=== PATIENT | female | born 1985 | race Caucasian/White ===

== ENCOUNTER 2022-10-16 11:54 | Emergency (ER) | payer MEDICAID ==
[~2022-10-16] VITALS: Ht 167 cm; Wt 94.8 kg
[~2022-10-16 11:54] MED LIST: CEPH500C PO; CYCL10TA9 PO; DOXY100C2 PO; FAMO-106 GT; FERR-57 PO; FRS325T PO; HYDR1TAB PO; IBP600T1 PO; LANS15CA PO; METR500T PO; NAPR-243 PO; OXYC-12 PO; PREN1TAB39 PO; PRM25T PO
[2022-10-16 12:28] LABS: BASOPHILS # (AUTO) 0.1 10^3/uL (0.0-0.1); BASOPHILS % (AUTO) 1 % (0-10); EOSINOPHILS # (AUTO) 0.1 10^3/uL (0.0-0.3); EOSINOPHILS % (AUTO) 1 % (0-10); HEMATOCRIT 40 % (35-52); HEMOGLOBIN 13.3 g/dL (11.5-16.0); LYMPHOCYTES # (AUTO) 3.5 10^3/uL (1.0-4.0); LYMPHOCYTES % (AUTO) 26 % (12-44); MEAN CORPUSCULAR HEMOGLOBIN 29 pg (25-34); MEAN CORPUSCULAR HGB CONC 34 g/dL (32-36); MEAN CORPUSCULAR VOLUME 86 fL (80-99); MEAN PLATELET VOLUME 10.4 fL (9.0-12.2); MONOCYTES # (AUTO) 0.7 10^3/uL (0.0-1.0); MONOCYTES % (AUTO) 5 % (0-12); NEUTROPHILS # (AUTO) 9.2 10^3/uL (1.8-7.8); NEUTROPHILS % (AUTO) 68 % (42-75); PLATELET COUNT 404 10^3/uL (130-400); WHITE BLOOD COUNT 13.6 10^3/uL (4.3-11.0)
[2022-10-16 12:29] LABS: BILIRUBIN,URINE NEGATIVE (NEGATIVE); CLARITY,URINE SL CLOUDY; COLOR,URINE YELLOW; GLUCOSE, URINE (UA) NEGATIVE (NEGATIVE); KETONES,URINE NEGATIVE (NEGATIVE); LEUKOCYTE ESTERASE ,URINE NEGATIVE (NEGATIVE); NITRITE,URINE NEGATIVE (NEGATIVE); PROTEIN,URINE NEGATIVE (NEGATIVE)
[2022-10-16 12:44] LABS: BACTERIA,URINE NEGATIVE /HPF; RBC,URINE RARE /HPF; SQUAMOUS EPITHELIAL CELL,UR 0-2 /HPF; WBC,URINE RARE /HPF
--- NOTE | 2022-10-16 12:50 | ED GU-Female ---
General Chief Complaint: - Reproductive Stated Complaint: | VAG BLEEDING Nursing Triage Note: pt presents to ed via pov from imaging with complaints of having a transvag us done aprox 45 min ago for a . according to pt the tech stated that no evidence in her uterus and wanted her to be checked to ectopic. pt reports she found about about the 2 weeks ago but unsure of lmp. pt states she starte having vaginal bleeding and cramping this am before she had the us. Source: patient Exam Limitations: no limitations History of Present Illness Date Seen by Provider: Oct 16, 2022 Time Seen by Provider: 12:12 Initial Comments 36-year-old female presents to the ER from the [facility] clinic for concerns of ectopic . She was seen at [facility] on 10/02 and had a posi tive test. According to her, at that time, her hCG was 249. She had a transvaginal ultrasound and a repeat hCG on 10/04 which did not show an intrauterine . hCG was 469 at that time. She went to [facility] today for spotting and right lower quadrant abdominal pain. She states that since she left [facility], the bleeding has increased. The pain in her right lower quadrant has not changed. She had an ultrasound at [facility], the tech was concerned for possible ectopic, so [facility] sent her here. I am waiting on the read from the radiologist at [facility]. Patient reports her last known menstrual cycle was July 23 and . She states her menstrual cycles are irregular. She is G4, P2. She denies fever, nausea, vomiting, dysuria. She has had 2 C-sections and an ovarian cyst removal. Allergies and Home Medications Allergies Coded Allergies: NKANo Known Allergies (Unverified Allergy, Mild, 06/13/09) Patient Home Medication List Home Medication List Reviewed: Yes Hydrocodone Bit/Acetaminophen (Vicodin 5-500 Tablet) 1 Each Tablet, 1-2 EACH PO Q4HR PRN Prescribed by: LISSETTE CRANE on 07/26/12 0928 Vits W-Ca,Fe,Fa(<1MG) () 1 Each Tablet, 1 EACH PO DAILY, (Reported) Entered as Reported by: FIDELINA MOSQUERA on 04/17/11 1846 Promethazine Hcl (Phenergan 25 Mg) 25 Mg Tablet, 1 TAB PO QID PRN, (Reported) Entered as Reported by: BRENDA BREWER on 07/03/12 1046 Review of Systems Review of Systems Constitutional: see HPI Past Djgwkay-Budzan-Udzavj Hx Patient Social History Tobacco Use?: Yes Tobacco type used: Cigarettes Smoking Status: Current Everyday Smoker Smokeless Tobacco Frequency: Never a User Use of E-Cig and/or Vaping dev: No Substance use?: Yes Substance type: Marijuana Substance frequency: Daily Alcohol Use?: No Pt feels they are or have been: No Seasonal Allergies Seasonal Allergies: No Past Medical History Reproductive Disorders: Yes (PCOS) Sexually Transmitted Disease: Yes (chlamydia) Physical Exam Vital Signs Vital Signs - First Documented 10/16/22 12:08 Temp 37.0 Pulse 97 Resp 16 B/P (MAP) 145/89 (107) Pulse Ox 97 Capillary Refill : Less Than 3 Seconds Height, Weight, BMI Height: '" Weight: lbs. oz. kg; 33.00 BMI Method:Stated General Appearance: WD/WN, no apparent distress Neck: supple, normal inspection Cardiovascular: regular rate, rhythm Respiratory: lungs clear, normal breath sounds, no respiratory distress, no accessory muscle use Gastrointestinal: normal bowel sounds, non tender, soft Extremities: normal range of motion, normal inspection Neurologic/Psychiatric: alert, normal mood/affect Skin: normal color, warm/dry Progress/Results/Core Measures Suspected Sepsis SIRS Temperature: Pulse: 97 Respiratory Rate: 16 Laboratory Tests 10/16/22 12:20: White Blood Count 13.6H Blood Pressure 145 /89 Mean: 107 Laboratory Tests 10/16/22 12:20: Creatinine 0.71, Platelet Count 404H, Total Bilirubin 0.3 Results/Orders Lab Results Laboratory Tests Test 10/16/22 12:18 10/16/22 12:20 Range/Units Urine Color YELLOW Urine Clarity SL CLOUDY Urine pH 7.0 5-9 Urine Specific [place] 1.015 L 1.016-1.022 Urine Protein NEGATIVE NEGATIVE Urine Glucose (UA) NEGATIVE NEGATIVE Urine Ketones NEGATIVE NEGATIVE Urine Nitrite NEGATIVE NEGATIVE Urine Bilirubin NEGATIVE NEGATIVE Urine Urobilinogen 1.0 < = 1.0 MG/DL Urine Leukocyte Esterase NEGATIVE NEGATIVE Urine RBC (Auto) 2+ H NEGATIVE Urine RBC RARE /HPF Urine WBC RARE /HPF Urine Squamous Epithelial Cells 0-2 /HPF Urine Crystals NONE /LPF Urine Bacteria NEGATIVE /HPF Urine Casts NONE /LPF Urine Mucus NEGATIVE /LPF Urine Culture Indicated NO White Blood Count 13.6 H 4.3-11.0 10^3/uL Red Blood Count 4.57 3.80-5.11 10^6/uL Hemoglobin 13.3 11.5-16.0 g/dL Hematocrit 40 35-52 % Mean Corpuscular Volume 86 80-99 fL Mean Corpuscular Hemoglobin 29 25-34 pg Mean Corpuscular Hemoglobin Concent 34 32-36 g/dL Red Cell Distribution Width 12.1 10.0-14.5 % Platelet Count 404 H 130-400 10^3/uL Mean Platelet Volume 10.4 9.0-12.2 fL Immature Granulocyte % (Auto) 0 % Neutrophils (%) (Auto) 68 42-75 % Lymphocytes (%) (Auto) 26 12-44 % Monocytes (%) (Auto) 5 0-12 % Eosinophils (%) (Auto) 1 0-10 % Basophils (%) (Auto) 1 0-10 % Neutrophils # (Auto) 9.2 H 1.8-7.8 10^3/uL Lymphocytes # (Auto) 3.5 1.0-4.0 10^3/uL Monocytes # (Auto) 0.7 0.0-1.0 10^3/uL Eosinophils # (Auto) 0.1 0.0-0.3 10^3/uL Basophils # (Auto) 0.1 0.0-0.1 10^3/uL Immature Granulocyte # (Auto) 0.1 0.0-0.1 10^3/uL Sodium Level 139 135-145 MMOL/L Potassium Level 3.8 3.6-5.0 MMOL/L Chloride Level 104 98-107 MMOL/L Carbon Dioxide Level 24 21-32 MMOL/L Anion Gap 11 5-14 MMOL/L Blood Urea Nitrogen 5 L 7-18 MG/DL Creatinine 0.71 0.60-1.30 MG/DL Estimat Glomerular Filtration Rate 112 BUN/Creatinine Ratio 7 Glucose Level 99 70-105 MG/DL Calcium Level 9.5 8.5-10.1 MG/DL Corrected Calcium 9.2 8.5-10.1 MG/DL Total Bilirubin 0.3 0.1-1.0 MG/DL Aspartate Amino Transf (AST/SGOT) 12 5-34 U/L Alanine Aminotransferase (ALT/SGPT) 13 0-55 U/L Alkaline Phosphatase 64 40-136 U/L Total Protein 7.9 6.4-8.2 GM/DL Albumin 4.4 3.2-4.5 GM/DL Human Chorionic Gonadotropin, Quant 110 H <5 MIU/ML My Orders Orders - JEFF KAMKory Walsh APRN Outside Films For Comparison (10/16/22 ) Cbc With Automated Diff (10/16/22 12:12) Hcg,Quantitative (10/16/22 12:12) Ua Culture If Indicated (10/16/22 12:12) Comprehensive Metabolic Panel (10/16/22 13:10) Non-Formulary Medication (Non-Formulary (10/16/22 13:30) Methotrexate Pf Injection (Methotrexate (10/16/22 13:45) Vital Signs/I&O 10/16/22 12:08 Temp 37.0 Pulse 97 Resp 16 B/P (MAP) 145/89 (107) Pulse Ox 97 Capillary Refill : Less Than 3 Seconds Blood Pressure Mean: 107 Progress Note : Progress Note Patient seen and evaluated, resting comfortably in bed, no acute distress. Based on exam and symptoms, concern for ectopic or miscarriage. Work- up initiated including CBC, hCG, UA. Waiting on radiology report from [facility]. 1306 Labs reviewed. CBC shows slightly elevated WBC 13.6, platelet slightly elevated 4 4. hCG quant 110. Urinalysis positive for 2+ RBCs, negative for infection. [facility] nurse practitioner reported that the ultrasound report from the radiologist dated possible cyst, but cannot rule out ectopic . She is going to fax the report. I called and spoke with Dr. Hwang, [employer], regarding results. She believes this is likely an ectopic and she recommends treatment with methotrexate. She recommends obtaining a CMP to evaluate patient's kidney and liver function. 1314 since patient is a [facility] patient, I called and spoke with Dr. Gonzalez, OB on- call, to make sure he is agreeable to treatment plan. He agrees with treatment plan. He would like patient to follow-up with Dr. Gandara since patient has an appointment with her. 1345 CMP grossly normal. Kidney and liver function is normal. Results discussed with patient. Discussed treatment with methotrexate. She is agr eeable to treatment. Patient received methotrexate. Patient instructed to follow-up with Dr. Gandara on Friday and Friday of next week for repeat hCG levels. Side effects of medications discussed with patient. Discharge instructions and return precautions provided. Departure Impression Primary Impression: Ectopic Qualified Codes: O00.90 - Unspecified ectopic without intrauterine Disposition: HOME, SELF-CARE Condition: Stable Departure-Patient Inst. Decision time for Depature: 13:39 Referrals: [facility] [place] (PCP/Family) Primary Care Physician BRIT GANDARA MD Patient Instructions: Ectopic ED Add. Discharge Instructions: You MUST follow-up with Dr. Gandara on Friday and again on Friday, call them today to schedule a follow-up appointment. They will do repeat hCG levels. Methotrexate, the medication were given you today, will cause abdominal pain and bleeding, but if you have severe abdominal pain, please return to the ER as this may mean that you have had a rupture. You must stay out of the sunlight for the next 2 weeks, this medication can cause severe sunburns. This medication can cause liver and kidney issues, you must follow-up with Dr. Gandara for evaluation of this. This medication can also cause nausea and vomiting. Please return for severe abdominal pain, if you are saturating a heavy pad every hour for several hours, you become dizzy, you pass out, or any other new, concerning, or worsening symptoms. All discharge instructions reviewed with patient and/or family. Voiced understanding. Copy Copies To 1: BRIT GANDARA MD, BRITTANY R APRN Oct 16, 2022 12:50
[2022-10-16 13:21] LABS: ALBUMIN 4.4 GM/DL (3.2-4.5)
[2022-10-16 13:22] LABS: POTASSIUM 3.8 MMOL/L (3.6-5.0)
[2022-10-16 13:23] LABS: CALCIUM 9.5 MG/DL (8.5-10.1)
[2022-10-16 13:24] LABS: TOTAL PROTEIN 7.9 GM/DL (6.4-8.2)
[2022-10-16 13:26] LABS: BILIRUBIN,TOTAL 0.3 MG/DL (0.1-1.0)
[2022-10-16 13:28] LABS: CREATININE SERUM 0.71 MG/DL (0.60-1.30)
[2022-10-16] MEDS ORDERED: NON-FORMULARY MEDICATION 1 EA EA INJ SCH (13:30)
[2022-10-16] MEDS: METHOTREXATE 50 MG/2 ML PF IM NR ×2 (13:39→13:40)
[2022-10-16 13:43] VITALS: BP 142/76
== END 2022-10-16 13:48 | disposition home or self-care (01) ==
LOC: EDUNIT# 11:54 → ER 11:56
DX: O00.90 Unspecified ectopic pregnancy without intrauterine pregnancy (principal); F17.210 Nicotine dependence, cigarettes, uncomplicated
CPT/HCPCS: 36415; 80053; 81000; 84702; 85025